=== PATIENT | female | born 1995 | race Caucasian/White ===

== ENCOUNTER → 2019-04-24 16:18 | Outpatient (CLI) | payer BC, SELFPAY ==
[2019-04-28 09:55] LABS: QuantiFERON-TB Gold Plus Negative (Negative)
== END ==
PROVIDERS: Visit Provider Family Medicine
DX: Z23 Encounter for immunization (principal)
CPT/HCPCS: 36415; 86480

== ENCOUNTER 2021-09-23 12:21 | Emergency (ER) | payer OTHER, SELFPAY ==
[2021-09-23 12:25] VITALS: BP 128/71; PULSE 84; RESP 18; TEMP 37.1; O2SAT 98; BMI 45.9
--- NOTE | 2021-09-23 12:38 | HMH.EDUTC ---
[facility] [place] Disposition Clinical Impression: Otitis media Qualifiers: Otitis media type: suppurative Chronicity: acute Laterality: bilateral Recurrence: non-recurrent Spontaneous tympanic membrane rupture: without spontaneous rupture Qualified Code(s): H66.003 - Acute suppurative otitis media without spontaneous rupture of ear drum, bilateral Disposition: Home, Self-Care Condition on Discharge: Good Instructions: Middle Ear Infection Additional Instructions: Drink plenty of fluids. Take tylenol or ibuprofen for pain or fever. Take the medications as directed. Follow up with your regular doctor. GO TO THE ER FOR ANY WORSENING SYMPTOMS Don't start the oral steroids (medrol dose pack) until tomorrow, since you had the shot here today. Prescriptions: RX: Pseudoephedrine HCl 30 mg PO Q6HP PRN #30 tab PRN Reason: Congestion Transmission Status: Pending to [id number] RX: clindamycin HCL [Clindamycin HCl] 300 mg PO TID 10 Days #30 cap Transmission Status: Pending to [id number] methylPREDNISolone [Medrol] 4 mg PO DIRECTED 6 Days #21 packet Transmission Status: Pending to [id number] guaiFENesin [Mucinex 600mg tablet] 1 - 2 tab PO BIDP PRN #30 tab PRN Reason: Congestion Transmission Status: Pending to [id number] Referrals: Dania Caballero APRN [Primary Care Provider] - Time of Disposition: 13:17 Medical Decision Making - Medical Records Medical records reviewed: No: I reviewed the patient's medical records. - Nadir Inquiry Pt receiving controlled substance: No Vital Signs: 09/23/21 12:25 Temperature 98.7 F Temperature Source Oral Pulse Rate [Left Brachial] 84 Respiratory Rate 18 Blood Pressure [Left Arm] 128/71 Blood Pressure Mean [Left Arm] 90 Blood Pressure Source [Left Arm] Automatic Cuff Blood Pressure Position [Left Arm] Sitting 02 Sat by Pulse Oximetry 98 Oxygen Delivery Method Room Air Orders (Tests/Meds): ORDERS Category Date Time Status Covid-19 Nasal PCR ([facility]) Routine Lab 09/23/21 13:11 Ordered [facility] [place] HPI - General Stated complaint: bilateral ear pain Time Seen by Provider: 09/23/21 12:38 Mode of Arrival: Ambulatory Source of Information: Patient Limitations: No Limitations Description of Symptoms (Recalled from Triage Doc. by RN): PATIENT C/O BIALTERAL EAR PAIN AND HEAD CONGESTION SINCE LAST NIGHT HEENT Symptoms (Recalled from RN notes): Yes Resp Symptoms (Recalled from RN notes): No Skin Symptoms (Recalled from RN notes): No MS Symptoms (Recalled from RN notes): No Functional Status (Recalled from RN notes): WNL - History of Present Illness Provider Complaint: She c/o bilateral ear pain for the past 2 days. She has a long history getting ear infections. She denies any fever or chills. Her did have covid-19 about 2 weeks ago. - Related Data Home Medications Medication Instructions Recorded Confirmed levonorgestrel-ethinyl estradiol 1 tab PO DAILY 28 Days #28 tab 07/15/18 09/23/21 0.1 mg-20 mcg tablet Previous Rx's Medication Instructions Recorded Pseudoephedrine HCl 30 mg PO Q6HP PRN #30 tab 09/23/21 clindamycin HCL [Clindamycin HCl] 300 mg PO TID 10 Days #30 cap 09/23/21 guaiFENesin [Mucinex 600mg tablet] 1 - 2 tab PO BIDP PRN #30 tab 09/23/21 methylPREDNISolone [Medrol] 4 mg PO DIRECTED 6 Days #21 09/23/21 packet Allergies Allergy/AdvReac Type Severity Reaction Status Date / Time amoxicillin Allergy Verified 09/23/21 12:38 azithromycin Allergy Verified 09/23/21 12:39 cefaclor [From Ceclor] Allergy Verified 09/23/21 12:38 clarithromycin [From Biaxin] Allergy Verified 09/23/21 12:38 Sulfa (Sulfonamide Allergy Verified 09/23/21 12:38 Antibiotics) tomato Allergy Verified 09/23/21 12:38 - Worker's Comp Is this a Worker's Comp case?: No [facility] History - Hepatitis A Screen Drug use history?: No High risk sexual behaviors?: No History of sexually transmitted infect
[2021-09-23 13:25] VITALS: BP 128/71; PULSE 84; RESP 18; TEMP 37.1; O2SAT 98
== END 2021-09-23 13:45 | disposition home or self-care (01) ==
PROVIDERS: Emergency Provider Nurse Practitioner Family; PCP Nurse Practitioner Family
DX: H66.003 Acute suppurative otitis media without spontaneous rupture of ear drum, bilateral (principal); Z88.2 Allergy status to sulfonamides
CPT/HCPCS: 96372; 99202; C9803; G0463; U0003; U0005

== ENCOUNTER → 2022-05-27 08:52 | Outpatient (CLI) | payer OTHER, SELFPAY ==
[2022-05-27 08:57] LABS: MANUAL DIFFERENTIAL MANUAL DIFFERENTIAL (MANUAL DIFF)
[2022-05-27 10:05] LABS: Urine Pregnancy, HCG Qual. Negative (Negative)
[2022-05-27 10:07] LABS: Basophils # 0.1 K/mm3 (0-0.2); Basophils % 1.2 % (0.1-2.0); Eosinophils # 0.3 K/mm3 (0.0-0.4); Eosinophils % 4.2 % (0.1-12.0); Hematocrit 43.5 % (37.0-47.0); Hemoglobin 14.3 g/dL (12.2-16.2); Lymphocytes # 2.9 K/mm3 (0.7-4.5); Lymphocytes % 35.3 % (10-50); Mean Corpuscular HGB Conc 32.8 g/dL (31.8-35.4); Mean Corpuscular Hemoglobin 28.9 pg (27.0-31.2); Mean Corpuscular Volume 88.1 fl (81-99); Mean Platelet Volume 7.6 fl (7.4-10.4); Monocytes # 0.5 K/mm3 (0.1-1.0); Monocytes % 6.2 % (1.7-9.3); Neutrophils # 4.4 K/mm3 (1.8-7.8); Platelet Count 328 K/mm3 (142-424); Red Blood Count 4.94 M/mm3 (4.20-5.40); White Blood Count 8.2 K/mm3 (4.8-10.8)
[2022-05-27 10:13] LABS: Chloride 98 mmol/L (98-107); Sodium 139 mmol/L (136-145)
[2022-05-27 10:14] LABS: Potassium 4.7 mmoL/L (3.5-5.1)
[2022-05-27 10:16] LABS: Alanine Aminotransferase 43 U/L (12-78); Albumin Level 4.5 g/dl (3.5-5.0); Albumin/Globulin Ratio 1.7 (1.1-1.8); Alkaline Phosphatase 50 U/L (38-126); Anion Gap 13.7 mEq/L (5-15); Aspartate Amino Transferase 37 U/L (14-36); Bilirubin,Total 0.5 mg/dl (0.2-1.3); Blood Urea Nitrogen 17 mg/dl (7-17); Carbon Dioxide 32 mmol/L (22.0-30.0); Estimated Glomerular Filt Rate 120 ml/min (>60); GFR (African American) 145 ML/MIN (>60); Globulin 2.6 g/dL (1.3-3.2); Total Protein,Serum 7.1 g/dl (6.3-8.2)
[2022-05-27 10:17] LABS: Calcium 8.7 mg/dl (8.4-10.2); Glucose 103 mg/dl (74-100)
[2022-05-27 11:57] LABS: Eosinophils % 2 % (0-3); Lymphocytes % 42 % (10-50); Monocytes % 3 % (2-9); Neutrophils % 53 % (42-76); Platelet Estimate Normal; RBC Morphology Normal; Total Cells Counted 100
== END ==
PROVIDERS: PCP Nurse Practitioner Family; Visit Provider Otolaryngology
DX: U07.1 COVID-19 (principal); H65.93 Unspecified nonsuppurative otitis media, bilateral; H69.80 Other specified disorders of Eustachian tube, unspecified ear
CPT/HCPCS: 36415; 80053; 81025; 85007; 85014; 85018; 85048; 85049; C9803; U0003; U0005

== ENCOUNTER → 2022-07-01 09:05 | Outpatient (CLI) | payer OTHER, SELFPAY ==
[2022-07-01 09:23] LABS: Basophils # 0.1 K/mm3 (0-0.2); Basophils % 1.2 % (0.1-2.0); Eosinophils # 0.4 K/mm3 (0.0-0.4); Eosinophils % 4.6 % (0.1-12.0); Hematocrit 42.4 % (37.0-47.0); Hemoglobin 13.8 g/dL (12.2-16.2); Lymphocytes % 35.3 % (10-50); Mean Corpuscular HGB Conc 32.5 g/dL (31.8-35.4); Mean Corpuscular Hemoglobin 28.8 pg (27.0-31.2); Mean Corpuscular Volume 88.4 fl (81-99); Monocytes # 0.5 K/mm3 (0.1-1.0); Monocytes % 5.8 % (1.7-9.3); Neutrophils # 4.5 K/mm3 (1.8-7.8); Platelet Count 325 K/mm3 (142-424); Red Blood Count 4.79 M/mm3 (4.20-5.40); Red Cell Distribution Width 12.9 % (11.5-17.5); White Blood Count 8.4 K/mm3 (4.8-10.8)
[2022-07-01 09:28] LABS: Urine Pregnancy, HCG Qual. Negative (Negative)
== END ==
PROVIDERS: PCP Otolaryngology; Visit Provider Otolaryngology
DX: Z01.812 Encounter for preprocedural laboratory examination (principal); H66.003 Acute suppurative otitis media without spontaneous rupture of ear drum, bilateral; H69.80 Other specified disorders of Eustachian tube, unspecified ear
CPT/HCPCS: 36415; 81025; 85025

== ENCOUNTER 2022-07-03 06:08 | Day surgery (SDC) | payer OTHER, SELFPAY ==
[2022-06-29 13:51] VITALS: BMI 48.6
[2022-07-03] VITALS (10 sets, daily range): BP systolic 135–178; BP diastolic 54–100; PULSE 67–91; RESP 12–18; TEMP 36.2–38; O2SAT 96–99
--- NOTE | 2022-07-03 06:53 | P.PN_ITS ---
[facility] Medical History History of COVID-19 Hypertension Surgical History H/O adenoidectomy History of section History of tonsillectomy Family History Mother Family history of hypothyroidism Mother Family history of diabetes mellitus type II Mother Family history of hypertension Social History Smoking Status: Former smoker alcohol intake: never substance use type: denies use current occupational status: other Travel in the last 8 weeks: Inside the [place] do you feel safe at home: Yes victim of physical abuse: No victim of emotional abuse: No victim of sexual abuse: No would you like helpful sources: No [facility] Anesthesia Checklist Patient Identification Patient Identification: Verbal (Name & ) Structural Data Admitted From: Home Planned Operative Procedure/s: l bmt Consent for Planned Operative Procedure(s) Verified: Yes NPO Status Verified Time NPO: 00:00 Additional verifications Anesthesia Reactions: No Hx Blood Transfusions: No Blood Transfusion Reaction: No Airway Assessment C-Spine Mobility Assessed: Yes TMJ Mobility Assessed: Yes Dentition: Good Dentition Neurological Assessment Level of Consciousness: Awake, Alert and Appropriate Anesthesia Plan Anesthesia Risk discussed: Yes Anesthesia Plan: Verified ASA Class: II Anesthesia Type: General
--- NOTE | 2022-07-03 08:46 | P.PNANES_ITS ---
[facility] Anesthesia Record Part I Anesthesia Record I Intake, IV Amount: 500 Estimated blood loss (mL): 0 Urine output (mL): 0 Blood Pressure: 155/54 SaO2: 96 Pulse Rate: 86 Respiratory Rate: 12 Temperature: 97.3 F Patient is:: Awake and Stable Stable to PACU at:: 08:40
--- NOTE | 2022-07-03 08:46 | EXP.OP.NOTE ---
Date of procedure: 07/03/22 Pre-op Diagnosis:: Eustachian tube dysfunction?left Recurrent otitis media left Post-op Diagnosis:: Same Procedure performed:: Left endoscopic eustachian tuboplasty Left myringotomy with tube placement (william roman) Surgeon:: Jordan Singh III, MD [facility] COORDINATOR:: Leif Barragan Anesthesia: GETA Estimated blood loss (mL): 5 Operative findings:: Her tympanic membrane on the left was severely atelectatic and bulging, the middle ear space was clear of fluid however. The left eustachian tube opening was also edematous and polypoid mucosa was noted. There was also some mucopurulent discharge coming from the opening. Operative note:: The patient was brought to the operating room and placed under general endotracheal anesthesia with an LMA device and IV sedation. The nasal cavity was prepared with topical Afrin initially followed by Afrin and lidocaine soaked cottonoids. I also injected 2% lidocaine with epinephrine into the lateral nasal wall posteriorly. At this juncture, the microscope was used to inspect the left external auditory canal. The canal was cleaned. As noted the tympanic membrane did have areas of atelectasis posteriorly. I elected to make the incision radial incision inferiorly and anteriorly in the tympanic membrane. The middle ear space was evacuated of negative pressure but no fluid was noted. A router bobbin tube was placed in the incision. Antibiotic/steroid drops were then placed in the canal. At this point the cottonoids were removed from both sides the nose and the endoscope was used to inspect the nasal cavity and nasopharynx. The mucosa and turbinates appeared healthy anteriorly. However on the left side the mucosa around the eustachian tube opening was severely edematous and there was some purulent discharge coming from the opening. Using the Metabacus eustachian tube balloon I was able to intubate the eustachian tube and slowly advance the balloon into position. It was inflated and held in position for 2 minutes. Once this was removed, there was some oozing noted topical Afrin and lidocaine was placed on a cottonoid which controlled any bleeding. I then inspected the right side which did not have significant edema as noted on the left. I then reinspected the left side there is no evidence of any further bleeding. Patient was then awakened in the operating room and taken the recovery room in good condition estimated blood loss for both procedures was less than 5 mL. Condition: stable Disposition: PACU Complications:: none
--- NOTE | 2022-07-03 09:00 | SUR.PHASEI ---
Pt left PACU with no C/O pain. Cotton ball in place L ear. Report called to Jessie Matosn RN. VSS.
--- NOTE | 2022-07-03 09:21 | SUR.PHASEI ---
Correction to last note time 0900 should be 0920. pt left pacu at 0920
--- NOTE | 2022-07-04 08:28 | P.PNANES_ITS ---
[facility] Anesthesia Record Part II Anesthesia Record Part II Discharge Time: 09:10 Destination: Outpatient Operating Room Dept PACU nurse assessment reviewed?: Yes Patient Condition:: Good Anesthesia Complications:: None Swallowing reflex intact?: Yes Cyanosis?: No Blood Pressure: 164/98 Pulse Rate: 76 Temperature: 97.5 F Mental Status: Alert & Oriented Pain level:: 0 Nausea and/or vomitting:: None Intake, IV Amount: 600
[2022-07-04 08:30] VITALS: BP 164/98; PULSE 76; TEMP 36.4
== END 2022-07-03 09:51 | disposition home or self-care (01) ==
PROVIDERS: PCP Nurse Practitioner Family; Visit Provider Otolaryngology
PROC: (CPT 69705; principal; 2022-07-03 07:30)
DX: H66.92 Otitis media, unspecified, left ear (principal); H69.92 Unspecified Eustachian tube disorder, left ear; Z79.899 Other long term (current) drug therapy
CPT/HCPCS: 69705; 69436; J2405

== ENCOUNTER 2023-03-04 11:43 | Emergency (ER) | payer OTHER, SELFPAY ==
[2023-03-04 11:43] VITALS: BP 131/79; PULSE 71; RESP 16; TEMP 36.5; O2SAT 97; BMI 34.4
--- NOTE | 2023-03-04 11:55 | EXP.UTC ---
Discharge Plan Disposition Patient Disposition: Home, Self-Care Condition: Good Prescriptions Prescriptions: New gentamicin 0.3 % drops 1 drp ophthalmic (eye) Q4H 7 Days Qty: 5 0RF No Action losartan 50 mg tablet 50 mg PO DAILY ondansetron [ondansetron] 4 mg tablet,disintegrating 4 mg PO Q8H Qty: 10 0RF Referrals Follow up/Referrals: Dania Caballero APRN [Primary Care Provider] - See instructions Activity Restrictions/Add. Instructions Additional Instructions/Restrictions: Use the eye drops as directed. Strict hand washing in the house hold, because conjunctivitis is very contagious. Follow up with your regular doctor. GO TO THE ER FOR ANY WORSENING SYMPTOMS OR CONCERNS Clinical Impressions Clinical Impression: Conjunctivitis of left eye Instructions Patient Instructions: How to Instill Eye Drops, DI for Conjunctivitis Discharge ED Provider: Silverio Ramirez [facility] General Stated complaint: eye drainage Time Seen by Provider: 03/04/23 11:55 History of Present Illness Provider Complaint: She state that since yesterday she has had left eye matting and discharge. She denies any injury or foreign body. Related Data Home Medications Medication Instructions Recorded Confirmed losartan 50 mg tablet 50 mg PO DAILY High blood pressure 03/27/22 07/31/22 Previous Rx's Medication Instructions Recorded ondansetron 4 mg disintegrating 4 mg PO Q8H #10 tabs 07/03/22 tablet gentamicin 0.3 % eye drops 1 drp ophthalmic (eye) Q4H 7 days 03/04/23 #5 mL Allergies Allergy/AdvReac Type Severity Reaction Status Date / Time amoxicillin Allergy Verified 07/31/22 15:33 azithromycin Allergy Verified 07/31/22 15:33 cefaclor [From Ceclor] Allergy Verified 07/31/22 15:33 clarithromycin [From Biaxin] Allergy Verified 07/31/22 15:33 Sulfa (Sulfonamide Allergy Verified 07/31/22 15:33 Antibiotics) tomato Allergy Verified 07/31/22 15:33 [facility] Disclaimer: The information contained in this section may have been updated after the patient was seen, as this information can be updated by other users. Medical History (Updated 03/04/23 @ 12:21 by Silverio Ramirez APRN) History of COVID-19 Hypertension Surgical History (Updated 07/31/22 @ 15:44 by Maricruz Haney APRN) H/O adenoidectomy History of section History of tonsillectomy Status post myringotomy with insertion of tube Family History Mother Family history of hypothyroidism Mother Family history of diabetes mellitus type II Mother Family history of hypertension Social History Smoking Status: Former smoker alcohol intake: never substance use type: denies use current occupational status: other Travel in the last 8 weeks: Inside the [facility] do you feel safe at home: Yes victim of physical abuse: No victim of emotional abuse: No victim of sexual abuse: No would you like helpful sources: No ROS Obtained: Yes All systems reviewed & no additional complaints except as documented Constitutional Constitutional: Denies chills and Denies fever(s) Eyes Eyes: Reports as per HPI and Reports eye discharge ENT Ears, Nose, Mouth, and Throat: Denies dizziness, Denies otalgia and Denies sore throat Cardiovascular Cardiovascular: Denies chest pain Respiratory Respiratory: Denies shortness of breath, Denies chest congestion, Denies cough, Denies stridor and Denies wheezing Gastrointestinal Gastrointestingal: Denies nausea or vomiting Musculoskeletal Musculoskeletal: Reports system reviewed and no additional complaints, except as documented and Denies arthralgias Integumentary/Breasts Skin/Breast: Denies rash Neurologic Neurologic: Denies dizziness and Denies paresthesias Allergic/Immunologic Allergic/Immunologic: Denies wheezing Physical Exam General General appearance: al
[2023-03-04 12:27] VITALS: BP 131/79; PULSE 71; RESP 16; TEMP 36.5; O2SAT 97
== END 2023-03-04 12:28 | disposition home or self-care (01) ==
PROVIDERS: Emergency Provider Nurse Practitioner Family; PCP Nurse Practitioner Family
DX: H10.32 Unspecified acute conjunctivitis, left eye (principal); I10 Essential (primary) hypertension; Z87.891 Personal history of nicotine dependence
CPT/HCPCS: 99212; 99214; G0463

== ENCOUNTER 2023-11-15 11:57 | Emergency (ER) | payer OTHER, SELFPAY ==
[2023-11-15 12:05] VITALS: BP 119/67; PULSE 77; RESP 18; TEMP 36.8; O2SAT 100; BMI 29.6
--- NOTE | 2023-11-15 12:12 | EXP.UTC ---
Discharge Plan Disposition Patient Disposition: Home, Self-Care Condition: Good Prescriptions Prescriptions: New clindamycin HCl 300 mg capsule 300 mg PO Q8H Qty: 30 0RF Referrals Follow up/Referrals: Dania Caballero APRN [Primary Care Provider] - See instructions Activity Restrictions/Add. Instructions Additional Instructions/Restrictions: Drink plenty of fluids. Take tylenol for pain or fever. Take the medications as directed. Follow up with your regular doctor. GO TO THE ER FOR ANY WORSENING SYMPTOMS Clinical Impressions Clinical Impression: Otitis media Instructions Patient Instructions: Middle Ear Infection, Clindamycin Discharge ED Provider: Silverio Ramirez [facility] General Stated complaint: Lt ear pain Time Seen by Provider: 11/15/23 12:12 History of Present Illness Provider Complaint: she states that for the past 3 days she has had ear pain, sinus congestion, and a sore throat. Related Data Previous Rx's Medication Instructions Recorded clindamycin HCl 300 mg capsule 300 mg PO Q8H #30 caps 11/15/23 Allergies Allergy/AdvReac Type Severity Reaction Status Date / Time amoxicillin Allergy Verified 07/16/23 13:24 azithromycin Allergy Verified 07/16/23 13:24 cefaclor [From Ceclor] Allergy Verified 07/16/23 13:24 clarithromycin [From Biaxin] Allergy Verified 07/16/23 13:24 Sulfa (Sulfonamide Allergy Verified 07/16/23 13:24 Antibiotics) tomato Allergy Verified 07/16/23 13:24 [facility] Disclaimer: The information contained in this section may have been updated after the patient was seen, as this information can be updated by other users. Medical History History of COVID-19 Hypertension Surgical History H/O adenoidectomy History of section History of tonsillectomy Status post myringotomy with insertion of tube Family History Mother Family history of hypothyroidism Mother Family history of diabetes mellitus type II Mother Family history of hypertension Social History Smoking Status: Former smoker alcohol intake: never substance use type: denies use current occupational status: other Travel in the last 8 weeks: Inside the [place] do you feel safe at home: Yes victim of physical abuse: No victim of emotional abuse: No victim of sexual abuse: No would you like helpful sources: No ROS Obtained: Yes All systems reviewed & no additional complaints except as documented Constitutional Constitutional: Denies chills, Reports fever(s) and Reports poor appetite Eyes Eyes: Denies eye discharge ENT Ears, Nose, Mouth, and Throat: Denies ear discharge, Reports otalgia, Denies hearing loss, Denies sinus pain and Reports sore throat Cardiovascular Cardiovascular: Denies chest pain and Denies dyspnea Respiratory Respiratory: Denies chest congestion, Reports cough and Denies dyspnea Gastrointestinal Gastrointestingal: Denies abdominal pain, diarrhea, nausea or vomiting Musculoskeletal Musculoskeletal: Denies arthralgias Integumentary/Breasts Skin/Breast: Denies rash Physical Exam General General appearance: alert and in no apparent distress Head Head exam: atraumatic, normocephalic and normal inspection Eye Eye exam: Present normal appearance; Absent PERRL or EOMI ENT ENT exam: Present mucous membranes moist and normal external ear exam Expanded ENT Exam TM/Canal exam: Bilateral TM: erythema, bulging and effusion Nose exam: Absent sinus tenderness Nasal speculum exam: Bilateral: normal Mouth exam: Present normal external inspection and other; Absent drooling Teeth exam: Present normal inspection Throat exam: Present tonsillar erythema and tonsillomegaly Neck Neck exam: Present normal inspection, full ROM and trachea midline; Absent tenderness, meningismus or lymphadenopathy Chest Chest inspection: Present normal inspection and symmetric chest wall rise; Absent tenderness Respiratory Respiratory exam: Present normal lung sounds bilaterally; Absent respiratory distress, wheezes or stridor Cardiovascular Cardiovascular exam: Present regular rate, normal rhythm and normal heart sounds; Absent tachycardia or irregular rhythm Abdominal Exam Abdominal exam: Present soft and normal bowel sounds; Absent distention, tenderness, guarding, rebound or rigidity Extremities Exam Extremities exam: Present normal inspection and normal capillary refill; Absent tenderness, joint swelling or calf tenderness Back Exam Back exam: Present normal inspection and full ROM; Absent tenderness, CVA tenderness (R) or CVA tenderness (L) Neurological Exam Neurological exam: Present alert, oriented X3, CN II-XII intact, normal gait and reflexes normal; Absent motor sensory deficit Psychiatric Psychiatric exam: Present normal affect and normal mood Skin Skin exam: Present warm, dry, intact and normal color Lymphatic Lymphatic Findings: no adenopathy Medical Decision Making Medical Records Medical records reviewed: No I reviewed the patient's medical records. Nadir Inquiry Pt receiving controlled substance: No
[2023-11-15 12:40] VITALS: BP 119/67; PULSE 77; RESP 18; TEMP 36.8; O2SAT 100
== END 2023-11-15 12:58 | disposition home or self-care (01) ==
PROVIDERS: Emergency Provider Nurse Practitioner Family; PCP Nurse Practitioner Family
DX: H66.93 Otitis media, unspecified, bilateral (principal); R09.81 Nasal congestion; R07.0 Pain in throat; Z87.891 Personal history of nicotine dependence
CPT/HCPCS: 99212; 99214; G0463

== ENCOUNTER 2024-03-18 14:16 | Emergency (ER) | payer OTHER, SELFPAY ==
[2024-03-18 14:25] VITALS: BP 118/73; PULSE 109; RESP 19; TEMP 36.9; O2SAT 100; BMI 27.8
--- NOTE | 2024-03-18 15:13 | ED_ITS ---
Discharge Plan Disposition Patient Disposition: Home, Self-Care Condition: Good Prescriptions Prescriptions: New clindamycin HCl 300 mg capsule 300 mg PO Q6H Qty: 40 0RF No Action docusate sodium 100 mg capsule 100 mg PO DAILY metoclopramide HCl 10 mg tablet 10 mg PO DAILY Referrals Follow up/Referrals: Dania Caballero APRN [Primary Care Provider] - See instructions Activity Restrictions/Add. Instructions Additional Instructions/Restrictions: continue to breastfeed or pump, no need to dispose of breastmilk Warm compresses and massage, wearing supportive bra (frequent breast feeding - use pumping to augment milk removal) Take medication as prescribed Use a cold compress (like an ice pack or a bag of frozen vegetables wrapped in a cloth) on your breasts to help decrease your breast fullness and ease your pain. Don?t use the cold compresses for longer than 20 minutes at a time to help prevent frostbite to your skin. Try to pump or feed right after using a cold compress. * Breastfeed on the affected side every 2 hours, or more frequently. This will keep your milk flowing and prevent your breast from getting too full of milk. * Massage the area. Start behind where it is sore and use a circular motion toward the nipple. * Apply warm, moist compresses to the sore area. * Wear a supportive, well-fitting bra. Make sure it isn?t too tight. You don?t want to constrict your milk ducts. * Although it may be painful, it is important to keep when you have mastitis. Your breast milk will not be bad for your baby, even if you have mastitis, although some infants may not like the taste. If you stop , germs can spread in the milk that is left in your breast. This could make your?infection?worse. If you cannot nurse your baby, you should pump your breasts to remove the milk. As with any antibiotic infant may develop diarrhea Over the Counter Ibuprofen for pain and fever Straight to ER if any life threatening symptoms FOllow up with your OBGYN in the next 7-10 days Clinical Impressions Clinical Impression: Mastitis Instructions Patient Instructions: DI for Mastitis, Mastitis Print Language Print Language: Irish Discharge ED Provider: Sushila Cruz [facility] HPI General Stated complaint: left breasy pain Mode of Arrival: Ambulatory Source of Information: Patient Limitations: No Limitations Time Seen by Provider: 03/18/24 15:17 Description of Symptoms (Recalled from Triage Doc. by RN): PATIENT C/O PAIN TO LEFT BREAST, HEADACHE, CHILLS, NAUSEA, AND FEELING LIGHT-HEADED THAT STARTED THIS MORNING HEENT Symptoms (Recalled from RN notes): Yes Resp Symptoms (Recalled from RN notes): No Skin Symptoms (Recalled from RN notes): No MS Symptoms (Recalled from RN notes): No Functional Status (Recalled from RN notes): WNL History of Present Illness Provider Complaint: Patient states she recently had baby and this morning she started with pain, redness and swelling in her left breast and having chills nausea and feeling achy States worried she may have mastitis so she came in to get checked when this evening the breast started feeling warm to the touch and looking red Related Data Home Medications ?Medication ?Instructions ?Recorded ?Confirmed docusate sodium 100 mg capsule 100 mg PO DAILY 03/18/24 03/18/24 metoclopramide HCl 10 mg tablet 10 mg PO DAILY 03/18/24 03/18/24 Previous Rx's ?Medication ?Instructions ?Recorded clindamycin HCl 300 mg capsule 300 mg PO Q6H #40 caps 03/18/24 Allergies Allergy/AdvReac Type Severity Reaction Status Date / Time amoxicillin Allergy Hives Verified 03/18/24 14:44 azithromycin Allergy Hives Verified 03/18/24 14:44 cefaclor [From Ceclor] Allergy Hives Verified 03/18/24 14:44 clarithromycin [From Biaxin] Allergy Hives Verified 03/18/24 14:44 Sulfa (Sulfonamide Allergy Hives Verified 03/18/24 14:44 Antibiotics) tomato Allergy Hives Verified 03/18/24 14:44 Worker's Comp Is this a Worker's Comp case?: No [facility] Disclaimer: The information contained in this section may have been updated after the patient was seen, as this information can be updated by other users. Medical History History of COVID-19 Hypertension Surgical History H/O adenoidectomy History of section History of tonsillectomy Status post myringotomy with insertion of tube Family History Mother Family history of hypothyroidism Mother Family history of diabetes mellitus type II Mother Family history of hypertension Social History Smoking Status: Former smoker alcohol intake: never substance use type: denies use current occupational status: other Travel in the last 8 weeks: Inside the [place] do you feel safe at home: Yes victim of physical abuse: No victim of emotional abuse: No victim of sexual abuse: No would you like helpful sources: No ROS Obtained: Yes All systems reviewed & no additional complaints except as documented and Yes Systems reviewed as appropriate & no additional complaints except as documented Constitutional Constitutional: Reports system reviewed and no additional complaints, except as documented, Reports as per HPI, Reports body ache, Reports chills and Denies fever(s) ENT Ears, Nose, Mouth, and Throat: Reports system reviewed and no additional complaints, except as documented and Reports as per HPI Cardiovascular Cardiovascular: Reports system reviewed and no additional complaints, except as documented and Reports as per HPI Gastrointestinal Gastrointestingal: Reports system reviewed and no additional complaints, except as documented and as per HPI Genitourinary Female Genitourinary: Reports system reviewed and no additional complaints, except as documented and Reports as per HPI Musculoskeletal Musculoskeletal: Reports system reviewed and no additional complaints, except as documented and Reports as per HPI Integumentary/Breasts Skin/Breast: Reports system reviewed and no additional complaints, except as documented, Reports as per HPI and Reports other (redness, pain and tenderness in left breast) Physical Exam General General appearance: alert and in no apparent distress ENT ENT exam: Present mucous membranes moist Chest Chest inspection: Present tenderness Expanded Chest Exam Female Torso: 2 1. redness, tenderness and warmth noted, appears like mastitis Respiratory Respiratory exam: Present normal lung sounds bilaterally; Absent respiratory distress or wheezes Cardiovascular Cardiovascular exam: Present regular rate, normal rhythm and normal heart sounds Neurological Exam Neurological exam: Present alert, oriented X3 and normal gait Medical Decision Making Nadir Inquiry Pt receiving controlled substance: No Nadir was queried for this patient: No Vital Signs: 03/18/24 14:25 Temperature 98.5 F Temperature Source Oral Pulse Rate [Left Brachial] 109 H Respiratory Rate 19 Blood Pressure [Left Arm] 118/73 Blood Pressure Mean [Left Arm] 88 Blood Pressure Source [Left Arm] Automatic Cuff Blood Pressure Position [Left Arm] Sitting 02 Sat by Pulse Oximetry 100 Oxygen Delivery Method Room Air Medical Decision Narrative: Medications and treatment discussed with OBGYN neon sign erector
[2024-03-18 15:34] VITALS: BP 118/73; PULSE 109; RESP 19; TEMP 36.9; O2SAT 100
== END 2024-03-18 15:39 | disposition home or self-care (01) ==
PROVIDERS: Emergency Provider Nurse Practitioner; PCP Nurse Practitioner Family
DX: N61.0 Mastitis without abscess (principal); R11.0 Nausea; R68.83 Chills (without fever)
CPT/HCPCS: 99212; 99214; G0463

== ENCOUNTER 2025-03-06 17:19 | Outpatient (CLI) | payer OTHER, SELFPAY ==
--- OUTSIDE RECORDS SUMMARY | 2025-02-02 06:30 | XMS_ITS ---
Author Organization [facility] Address [address] [place] [address] Care Team Providers Care Bobj Developer Name Role Phone Zoey Hilario Unavailable [phone] Allergies Allergen (clinical drug ingredient) Drug/Non Drug Allergy documented on EMR Reaction Allergy Type Onset Date Status cefaclor ceclor (uncoded) Unknown Allergy Act makenna amoxicillin Amoxicillin Unknown Drug Allergy Act makenna Biaxin Unknown Drug Allergy Active azithromycin Zithromax Unknown Drug Allergy Acti ve Substance with sulfonamide structure and antibacterial mechanism of action (substance) Sulfa Antibiotics Unknown Drug Allergy Active REASON FOR VISIT 24 weeks gtt 11:56 Medications Medication SIG (Take, Route, Fr equency, Duration) Notes Start Date End Date Status 27-1 MG Tablet 1 tablet Orally Once a day Active Social History Tobacco Use: Social History Observation Description Date Details (start date - stop date) Current Smoker NA - NA Sex Assigned At : Social History Observation Description Sex Assigned At Female Social History Drugs/Alcohol: Social Info Question Answer Notes Drugs Have you used drugs other than those for medical reasons in the past 12 months? No Steroid Use Have you used anabolic (body building) st eroids? No Alcohol Screen Did you have a drink containing alcohol in the past year? No Points 0 Interpretation Negative Tobacco Use: Social Info Question Answer Notes Tobacco Use/Smoking Are you a current smoker How often do you smoke cigarettes? every day How many cigarettes a day do you smoke? 6-10 Additional Details Category Social Info Options Details Miscellaneous: Domestic violence: No Problems Problem Type SNOMED Code ICD Code Onset Dates Problem Status W/U Status Risk Notes Problem History of section (038045584) Previous section (Z98.891) Active confirmed Vital Signs Weight 176.8 lbs 02/02/2025 BMI 30.348 kg/m2 02/02/2025 Encounters Encounter Location Date Provider Diagnosis [facility] [address] [facility] [address] [place] [address] 02/02/2025 Zoey Hilario History of bariatric surgery Z98.84 ; Supervision of other high risk pregnancies, second trimester O09.892 ; History of delivery, currently O34.219 ; 24 weeks gestation of Z3A.24 and Previous section Z98.891 Assessments Encounter Date Diagnosis (ICD Code) Assessment Notes Treatment Notes Treatment Clinical Notes Section Notes 02/02/2025 History of bariatric surgery (ICD-10 - Z98.84) 02/02/2025 Supervision of other high risk pregnancies, second trimester (ICD-10 - O09.892) 02/02/2025 History of delivery, currently (ICD-10 - O34.219) 02/02/2025 24 weeks gestation of (ICD-10 - Z3A.24) 02/02/2025 Previous section (ICD-10 - Z98.891) Plan Of Treatment Medication Medication Name Sig Start Date Stop Date Notes 27-1 MG Tablet 1 tablet Orally Once a day Next Appt Details Follow Up: 4 Weeks, Reason: Provider Name:Zoey Hilario, 03/17/2025 10:30:00 AM, [place], [address], Provider Name:Zoey Hilario, 03/31/2025 10:30:00 AM, [place], [address], Provider Name:Zoey Hilario, 04/14/2025 10:30:00 AM, [place], [address], Provider Name:Zoey Hilario, 04/28/2025 10:30:00 AM, [place], [address], Provider Name:Zoey Rodriguezsusu, 05/05/2025 10:45:00 AM, [address], [place], [address], Provider Name:Zoey Houstonjasmin, 05/12/2025 10:45:00 AM, [address], [place], [address], Provider Name:Mary Alec, 05/18/2025 12:00:00 PM, [address] [facility] [place] [place], [address], Provider Name:Zoey Sulaiman, 06/01/2025 11:15:00 AM, [address] [facility] [address] [place] [address], [address], Provider Name:Zoey Sulaiman, 07/01/2025 11:30:00 AM, [address] [facility] [address], [address], Progress Notes * Junie QUIROGAOB:1995 (29 yo F)Acc No.[id number]:02/02/2025 Progress Note Patient: Argenis Parker Provider: Yuliet Hilario MD :1995 A ge:29 Y S ex:Female Date:02/02/2025 [facility] Subjective: * Chief Complaints: * 2 4 weeks gtt 11:56 * Medical History: Hypertension Medical History Verified * Computer Software Engineer History: M enstrual History: A ssociated signs and symptoms of period: N o S exual Activity/Contraception: C urrently sexually active Y es E johan sexually active Y es N umber of partners (lifetime) N o A ge of first sexual activity 1 5 L ast Preventive Screening Labs: N /A. U rinary Incontinence: D o you ever leak urine when you cough, sneeze, laugh or exercise Y es D o you ever leak urine on the way to the bathroom or can't get to the bathroom on time N o D o you go to the bathroom frequently more than 7 times during the day and/or get up more than 2 times at night N o, No L ast Mammogram Date (Historical) N /A. L ast Colon Cancer Screening Date: (Historical) N /A. L ast DEXA Scan: (Historical) N /A. B irth control (Historical) N othing. L ast HPV (Historical) L ast HPV N /A A bnormal pap smear (Historical) N o. S exually Transmitted Infections (STIs) N one. L ast Pap Smear/HPV Date (Historical) 0 03/08/22 Normal, HPV Negative. * OB History: P regnancy History (GPA) Total Pregnancies 2 Full Term 2 Premature 0 Ectopics 0 Living 2 P regnancy # 1: [id number] weeksC-sectionSpinal BlockN/AYes I gained weight, can't remember how muchI had an emergency due to high blood pressure at my 37 week appointment.. P regnancy # 2: csection 6.0lbs female. * Surgical History: tonsillectomy 2019 Bariatric Surgery 10/23/22 Surgical History verified. * Hospitalization/Major Diagno stic Procedure: Bariatric Surgery 11/09 Hospitalization Verified. * Family History: M other: diagnosed with Diabetes mellitus without mention of complication, type II or unspecified type, not stated as uncontrolled. F amily History Verified.. Family History: Family history known Auto Immune Disorders: Mother Diabetes: Mother Hypertension: Mother, Father Stroke: Maternal Grandmother, Paternal Grandfather Thyroid Disorder: Mother. * Social History: T obacco Use: T obacco Use/Smoking A re you a c urrent smoker H ow often do you smoke cigarettes? e very day H ow many cigarettes a day do you smoke? 6 -10 D rugs/Alcohol: D rugs H ave you used drugs other than those for medical reasons in the past 12 months? N o Alcohol Screen D id you have a drink containing alcohol in the past year? N o P oints 0 I nterpretation N egative Steroid Use H ave you used anabolic (body building) steroids? N o M iscellaneous: D omestic violence: No. S ocial History Verified. * Medications: T akingPrenatal( Vit-Fe Fumarate-FA) 27-1 MG Tablet 1 tablet Orally Once a day Medication List reviewed and reconciled with the patientTaking ( Vit-Fe Fumarate-FA) 27-1 MG Tablet 1 tablet Orally Once a day Medication List reviewed and reconciled with the patient * Allergies: S ulfa AntibioticsAmoxicillinBiaxinceclorZithromaxyesAllergies Verified. Objective: * Vitals: W t: 176.8 lbs, BMI: 30.348 Index. Assessment: * Assessment: 1. S upervision of other high risk pregnancies, second trimester - O09.892 (Primary) 2 . H istory of bariatric surgery - Z98.84 3 . H istory of delivery, currently - O34.219 4 . 2 4 weeks gestation of - Z3A.24 5 . P revious section - Z98.891 Plan: * Treatment: * Procedure Codes: 0 502F HEDIS SUBSEQUENT CARE * Follow Up: 4 Weeks Billing Information: * Visit Code: 43720 Office/Outpatient visit, est patient. mirtha Return OB Visit. * Procedure Codes: 0502F HEDIS SUBSEQUENT CARE. * Sign off status: Completed Visit Status: C HK (Check Out) true * Provider: Yuliet Hilario MD Date: 0 02/02/2025 Generated for Mandy hernandez/Laurel/Pinaitting on: 0 03/09/2025 10:04 AM EDT
--- OUTSIDE RECORDS SUMMARY | 2025-02-02 11:35 | XMS_ITS | Encounter Summary ---
[facility] Organization [facility] Address [address] [place] [address] Care Team Providers Care Backend Python Developer Name Role Phone Dania Caballero APRN Primary Care Provider + [phone] Encounter Details Date Type Department Care Team (Late st Contact Info) Description 02/02/2025 11:35 AM EDT Lab [facility] [address] [place] [phone] History of maternal syphilis, currently , second trimester Social History Tobacco Use Types Packs/Day Years Used Date Smoking Tobacco: Never Passive Smoke Exposure: Never Smokeless Tobacco: Never Alcohol Use Standard Drinks/Week Comments Never 0 (1 standard drink = 0.6 oz pur e alcohol) [facility] Utilities Answer Date Recorded In the past 12 months has e electric, gas, oil, or water company threatened to shut off services in your home? No 02/18/2024 AUDIT-C Answer Date Recorded Q1: How often do you have a drink containing alcohol? Never 02/18/2024 Q2: How many drinks containi ng alcohol do you have on a typical day when you are drinking? Patient does not drink Q3: How often do you have si x or more drinks on one occasion? Never 02/18/2024 Overall Financial Resource Strain (CARDIA) Answe r Date Recorded How hard is it for you to pa y for the very basics like food, housing, medical care, and heating? Not hard at all 02/18/2024 [facility] of Occupat ional Health - Occupational Stress Questionnaire Answer Date Recorded Do you feel stress - tense, restless, nervous, or anxious, or unable to sleep at night because your mind is troubled all the time - these days? Not at all 02/18/2024 Exercise Vital Sign Answer Date Recorde d On average, how many days pe r week do you engage in moderate to strenuous exercise (like a brisk walk)? 0 days 02/18/2024 On average, how many minutes do you engage in exercise at this level? 0 min 02/18/2024 Hunger Vital Sign Answer Date Recorded Within the past 12 months, y ou worried that your food would run out before you got the money to buy more. Never true 02/18/20 24 Within the past 12 months, t he food you bought just didn't last and you didn't have money to get more. Never true 02/18/2024 PRAPARE - Transportation Answer Date Re corded In the past 12 months, has l ack of transportation kept you from medical appointments or from getting medications? No 08/2023 In the past 12 months, has l ack of transportation kept you from meetings, work, or from getting things needed for daily living? No 02/18/2024 [place] Depression Scale Answer Date Recorded Retired [place] Depression Score 0 02/19/2024 Retired EPD Scale: Thought of Harming Self Unrec ognized value 02/19/2024 Abuse Screen Answer Date Recorded Feels Unsafe at Home or Work/School no 02/18/2024 Feels Threatened by Someone no 08/2023 Does Anyone Try to Keep You From Having Contact with Others or Doing Things Outside Your Home? no 02/18/2024 Physical Signs of Abuse Present no 02/18/2024 Housing Stability Answer Date Recorded Current Living Arrangements home 08/2023 Potentially Unsafe Housing Conditions none 02/18/2024 Family and Community Support Answer Aidan e Recorded If for any reason you need h elp with day-to-day activities such as bathing, preparing meals, shopping, managing finances, etc., do you get the help you need? I don't need any help 02/18/2024 How often do you feel lonely or isolated from those around you? Never 02/18/2024 Employment Answer Date Recorded Do you want help finding or keeping work or a job? I do not need or want help 02/18/2024 Disabilities Answer Date Recorded Difficulty Concentrating, Remembering or Making Decisions no 02/18/2024 Difficulty Managing Errands Independently no 02/18/2024 Education Answer Date Recorded Do you want help with school or training? For example, starting or completing job training or getting a high school diploma, GED or equivalent No 02/18/2024 Preferred Language Fijian 02/18/2024 PHQ-2 Answer Date Recorded Retired PHQ-9: Brief Depression Severity Measure Score 0 02/18/2024 Comments No Sex and Gender Information Value Date Recorded Sex Assigned at Not on file Legal Sex Female 3:19 PM EST Gender Identity Not on file Sexual Orientation Not on file documented as of this encounter Plan of Treatment Upcoming Encounters Date Type Department Care Team (Late st Contact Info) Description 05/15/2025 3:30 PM EDT Pre-Admission Testing [facility] [address] [place] [address] 05/18/2025 12:00 PM EDT Hospital Encounter [facility] [address] [place] [address] Mary Michael MD [address] [address] 05/18/2025 12:00 PM EDT - 05/18/2025 1:00 PM EDT Surgery [facility] [address] [place] [address] Mary Michael MD [facility] [address] [address] SECTION REPEAT Scheduled Procedures Name Priority Associated Diagnoses Date/Ti me SECTION REPEAT 04/21 12:00 PM EDT documented as of this encounter Procedures Procedure Name Priority Date/Time Associated Diagnosis Comments TREPONEMA PALLIDUM AB W/REFLEX RPR Routine 02/02/2025 11:58 AM EDT History of maternal syphilis, currently , second trimester GLUCOSE, POST 50 GM GLUCOLA Routine 02/02/2025 11:58 AM EDT History of maternal syphilis, currently , second trimester CBC (NO DIFF) Routine 02/02/2025 11:58 AM EDT History of maternal syphilis, currently , second trimester documented in this encounter Results * Treponema pallidum AB w/Reflex RPR (02/02/2025 11:58 AM EDT) [facility] Treponemal AB Total Non-Reacti ve Non-React makenna 02/02/2025 2:52 PM EDT [facility] Blood Venipuncture / Unknown 02/02/2025 11:58 AM EDT 02/02/2025 12:15 PM EDT Narrative [facility] - 02/02/2025 2:52 PM EDT Reactive results will reflex RPR testing. Zoey Hilario MD LAB BLOOD ORDERABLES Final Re sult [facility]
[address] [place] [address], * (ABNORMAL) CBC (No Diff) (02/02/2025 11:58 AM EDT) [facility] WBC 6.55 3.40 - 10.80 10*3/mm3 02/02/2025 2:33 PM EDT [facility] RBC 3.85 3.77 - 5.28 10*6/mm3 02/02/2025 2:33 PM EDT [facility] Hemoglobin 11.7(L) 12.0 - 15.9 g/dL 02/02/2025 2:33 PM EDT [facility] Hematocrit 35.0 34.0 - 46.6 % 02/02/2025 2:33 PM EDT [facility] MCV 90.9 79.0 - 97.0 fL 02/02/2025 2:33 PM EDT [facility] MCH 30.4 26.6 - 33.0 pg 02/02/2025 2:33 PM EDT [facility] MCHC 33.4 31.5 - 35.7 g/dL 02/02/2025 2:33 PM EDT [facility] RDW 11.7(L) 12.3 - 15.4 % 02/02/2025 2:33 PM EDT [facility] RDW-SD 38.8 37.0 - 54.0 fl 02/02/2025 2:33 PM EDT [facility] MPV 10.1 6.0 - 12.0 fL 02/02/2025 2:33 PM EDT [facility] Platelets 232 140 - 450 10*3/mm3 02/02/2025 2:33 PM EDT [facility] Blood Venipuncture / Unknown 02/02/2025 11:58 AM EDT 02/02/2025 12:06 PM EDT us Zoey Hilario MD LAB BLOOD ORDERABLES Final Re sult [facility]
[address] [place] [address], [place] [phone] * Glucose, Post 50 Gm Glucola (02/02/2025 11:58 AM EDT) Gestational GCT 133 65 - 139 mg/dL 02/02/2025 4:15 PM EDT [facility] Blood Venipuncture / Unknown 02/02/2025 11:58 AM EDT 02/02/2025 1:12 PM EDT us Zoey Hilario MD LAB BLOOD ORDERABLES Final Re sult [facility]
[address] [place] [address], [place] [phone] documented in this encounter Visit Diagnoses Diagnosis History of maternal syphilis, currently , second trimester documented in this encounter Care Teams Backend Python Developer Relationship Specialty Start Date End Date Dania Caballero APRN [address] [place] [address] PCP - General Internal Medicine 08/28/23 documented as of this encounter
--- OUTSIDE RECORDS SUMMARY | 2025-03-02 06:30 | XMS_ITS ---
Author Organization [facility] Address [address] [place] [address] Care Team Providers Care Rotary Drum Tanner Name Role Phone Zoey Hilario Unavailable [phone] Allergies Allergen (clinical drug ingredient) Drug/Non Drug Allergy documented on EMR Reaction Allergy Type Onset Date Status cefaclor ceclor (uncoded) Unknown Allergy Act makenna amoxicillin Amoxicillin Unknown Drug Allergy Act makenna Biaxin Unknown Drug Allergy Active azithromycin Zithromax Unknown Drug Allergy Acti ve Substance with sulfonamide structure and antibacterial mechanism of action (substance) Sulfa Antibiotics Unknown Drug Allergy Active REASON FOR VISIT 28 weeks Medications Medication SIG (Take, Route, Fr equency, [...] Problem Status W/U Status Risk Notes Problem Supervision of high risk (712127339) Supervision of other high risk pregnancies, third trimester (O09.893) Active confirmed Vital Signs Weight 181.0 lbs 03/02/2025 BMI 31.069 kg/m2 03/02/2025 Encounters Encounter Location Date Provider Diagnosis [facility] [address] [place] [address] 03/02/2025 Zoey Hilario History of bariatric surgery Z98.84 ; Supervision of other high risk pregnancies, third trimester O09.893 ; History of delivery, currently O34.219 ; Previous section Z98.891 and 28 weeks gestation of Z3A.28 Assessments Encounter Date Diagnosis (ICD Code) Assessment Notes Treatment Notes Treatment Clinical Notes Section Notes 03/02/2025 History of bariatric surgery (ICD-10 - Z98.84) 03/02/2025 Supervision of other high risk pregnancies, third trimester (ICD-10 - O09.893) 03/02/2025 History of delivery, currently (ICD-10 - O34.219) 03/02/2025 Previous section (ICD-10 - Z98.891) 03/02/2025 28 weeks gestation of (ICD-10 - Z3A.28) Plan Of Treatment Medication Medication Name Sig Start Date Stop Date Notes 27-1 MG Tablet 1 tablet Orally Once a day Next Appt Details Follow Up: 2 Weeks, Reason: Provider Name:Zoey Hilario, 03/17/2025 10:30:00 AM, [address], [place], [address], Provider Name:Zoey Hilario, 03/31/2025 10:30:00 AM, [address], [address], Provider Name:Zoey Hilario, 04/14/2025 10:30:00 AM, [address], [place], [address], Provider Name:Zoey Hilario, 04/28/2025 10:30:00 AM, [place], [address], Provider Name:Zoye Sulaiman, 05/05/2025 10:45:00 AM, [address], [place], [address], Provider Name:Zoey Rodriguezsusu, 05/12/2025 10:45:00 AM, [address], [place], [address], Provider Name:Mary Michael, 05/18/2025 12:00:00 PM, [address] [facility], [place], [address], Provider Name:Zoey Sulaiman, 06/01/2025 11:15:00 AM, [address] [facility] [address] [place] [address], [phone], Provider Name:Zoeyjoey Hilario, 07/01/2025 11:30:00 AM, [address] [facility] [address] [place] [address], [phone], Progress Notes * Junie QUIROGAOB:1995 (29 yo F)Acc No.[id number]:03/02/2025 Progress Note Patient: Argenis Parker Provider: Yuliet Hilario MD :1995 A ge:29 Y S ex:Female Date:03/02/2025 [id number] Subjective: * Chief Complaints: * 2 8 weeks * Medical History: Hypertension : yes Medical History Verified * Android Ui Developer History: M enstrual History: A ssociated signs [...] 0 Living 2 P regnancy # 1: [id number] weeksC-sectionSpinal BlockN/AYes I gained weight, can't remember [...] AntibioticsAmoxicillinBiaxinceclorZithromaxyesAllergies Verified. Objective: * Vitals: W t: 181.0 lbs, BMI: 31.069 Index. * P ast Orders: L ab:GLUCOSE, POST 50 GM GLUCOLA (Order Date - 02/02/2025) (Collection Date & Time - 02/02/2025 01:58 PM) Result: 133 passed Value Reference Range GESTATIONAL GCT 133 65-139 - mg/dL L ab:CBC (NO DIFF) (Order Date - 02/02/2025) (Collection Date & Time - 02/02/2025 01:58 PM) Result: Normal Value Reference Range WBC, CORRECTED 6.55 3.40-10.80 - 10*3/mm 3 ERYTHROCYTES IN BLOOD BY AUTOMATED COUNT 3.85 3.77-5.28 - 10*6/mm3 HEMOGLOBIN (MG/DL) IN BLOOD 11.7 L 12.0-15.9 - g/dL HEMATOCRIT (%) BY AUTOMATED COUNT 35.0 34.0-4 6.6 - % RBC MCV (FL) BY AUTOMATED COUNT 90.9 79.0-97. 0 - fL RBC MCH (PG) BY AUTOMATED COUNT 30.4 26.6-33. 0 - pg RBC MCHC (G/DL) BY AUTOMATED COUNT 33.4 31.5- 35.7 - g/dL RBC RDW (%) BY AUTOMATED COUNT 11.7 L 12.3-15.4 - % RDW-SD 38.8 37.0-54.0 - fl MEAN PLATELET VOLUME (FL) BY AUTOMATED COUNT 10.1 6.0-12.0 - fL PLATELETS BY AUTOMATED COUNT 232 140-450 - 1 0*3/mm3 Assessment: * Assessment: 1. S upervision of other high risk pregnancies, third trimester - O09.893 (Primary) ?2. H istory of bariatric surgery - Z98.84 3 . H istory of delivery, currently - O34.219 4 . P revious section - Z98.891 5. 2 8 weeks gestation of - Z3A.28 Plan: * Treatment: * Procedure Codes: 0 502F HEDIS SUBSEQUENT CARE * Follow Up: 2 Weeks Billing Information: * Visit Code: 22264 Office/Outpatient visit, est patient. mirtha Return OB Visit. * Procedure Codes: 0502F HEDIS SUBSEQUENT CARE. * Sign off status: Completed Visit Status: C HK (Check Out) true * Provider: Yuliet Hilario MD Date: 03/02/2025 Generated for Mandy hernandez/Laurel/Pinaitting on: 03/09/2025 10:04 AM EDT
--- OUTSIDE RECORDS SUMMARY | 2025-03-09 10:04 | XMS_ITS | Encounter Summary ---
Author Organization [facility] Address [address] [place] [address] Care Team Providers Care Prototype Technician Name Role Phone Dania Caballero APRN Primary Care Provider + [phone] Encounter Details Date Type Department Care Team (Latest Contact Info) Description 02/02/2025 Travel Social History Tobacco Use Types Packs/Day Years Used Date Smoking Tobacco: Never Passive Smoke Exposure: Never Smokeless Tobacco: Never Alcohol Use Standard Drinks/Week Comments Never 0 (1 standard drink = 0.6 oz pur e alcohol) [facility] Utilities Answer Date Recorded In the past 12 months has [employer] electric, gas, oil, or water company threatened [...] and heating? Not hard at all 02/18/2024 [employer] [place] [employer] - Occupational Stress [...] things needed for daily living? No 02/18/2024 [place] Depression Scale Answer Date Recorded Retired [place] Depression Score 0 02/19/2024 Retired EPD Scale: [...] GED or equivalent No 02/18/2024 Preferred Language Yi 02/18/2024 PHQ-2 Answer Date Recorded Retired PHQ-9: [...] Description 05/15/2025 3:30 PM EDT Pre-Admission [facility] [address] [facility] [place] [address] 05/18/2025 12:00 PM EDT Hospital Encounter [facility] [address] [facility] [place] [address] Mary Michael MD [facility] [place] [id number] 05/18/2025 12:00 PM EDT - 05/18/2025 1:00 PM EDT Surgery [facility] [address] [place] [address] Mary Michael MD [address] [place] [id number] SECTION REPEAT Scheduled Procedures Name Priority Associated Diagnoses Date/Ti me SECTION REPEAT 04/21 12:00 PM EDT documented as of this encounter Visit Diagnoses Not on filedocumented in this encounter Care Teams Prototype Technician Relationship Specialty Start Date End Date Dania Caballero APRN [address] [address] PCP - General Internal Medicine 08/28/23 documented as of this encounter
--- OUTSIDE RECORDS SUMMARY | 2025-03-09 10:05 | XMS_ITS | Patient Health Record ---
Author Organization [facility] Address [address] [facility] [address] [place] [address] Care Team Providers Care Handle Bar Assembler Name Role Phone Zoey Hilario Unavailable [phone] Mary Michael Unavailable [phone] Allergies Allergen (clinical drug ingredient) Drug/Non Drug Allergy documented on EMR Reaction Allergy Type Onset Date Status cefaclor ceclor (uncoded) Unknown Allergy Act makenna amoxicillin Amoxicillin Unknown Drug Allergy Act makenna Biaxin Unknown Drug Allergy Active azithromycin Zithromax Unknown Drug Allergy Acti ve Substance with sulfonamide structure and antibacterial mechanism of action (substance) Sulfa Antibiotics Unknown Drug Allergy Active Results Component Value Reference Range Flag Notes *US OB Detailed Anatomy Reviewed date:01/07/2025 01:08:41 PM Interpretation: Performing Lab: Notes/Report: [facility] Transabdominal Obstetric Study Report Name: GIRMA QUIROGA Accession/Encounter No:[id number] Procedure/Order ID: [id number] : 1995 Age: 29 Gender: F Race: White Study Date: January 06, 2025 Study Time: 03:03 PM Reading Group: Zoey Hilario MD Referring Group: Zoey Hilario MD Ordering Phys: Zoey Hilario MD Performing User: Iesha Rainey RDMS Equipment: Affiniti 30 Study Quality: Good Indications: anatomy scan Low risk NIPT A growth ultrasound was performed. Disclaimer: Ultrasound cannot detect all structural defects or underlying genetic abnormalities. Additionally, some abnormalities develop over time and/or are not detectable until after . General Information Trimester: 2nd/3rd trimester Gestations: 1 : Intrauterine Gestational Age (Best) Best: 20w 4d Determined by: LMP MONISHA: 2025-05-22 Gestational Age (Prev Study) Previous US: 20w 4d Previous Study: Oct 2024 by LMP MONISHA: 2025-05-22 Gestational Age (LMP) LMP: 20w 4d First Day of LMP: 2024-08-15 MONISHA: 2025-05-22 Gestational Age (Current US) Current US: 20w 0d MONISHA: 2025-05-26 General Evaluation gender: M cardiac activity: Present Presentation/Position: Cephalic Placental cord insert: Centrally located Placental location: Fundal-posterior Biometry (Fetus A) EFW: 321.7g 11 oz 33% BLAKE-76 BPD: 4.67 cm 20w 1d 30% HADLOCK-84 HC: 17.12 cm19w 5d 10% HADLOCK-84 AC: 14.78 cm20w 0d 27% HADLOCK-84 FL: 3.16 cm 19w 6d 18% HADLOCK-84 FL/HC: 0.18 HC/AC: 1.16 FL/BPD: 0.68 FL/AC: 0.21 Cisterna magna: 6.6 mm Lateral vents: 6.5 mm TCD: 1.97 cm 20w 1d 11% Nuchal fold: 3.26 mm Anatomy (Fetus A) Midline falx: Normal Cisterna magna: Normal Choroid plexus: Normal Lateral ventricles: Normal Cerebellum: Normal CSP: Normal Orbits: Normal Face: Normal Profile: Normal Nasal bone: Normal Nose/Lips: Normal Right upper extr: Normal Right lower extr: Normal Left upper extr: Normal Left lower extr: Normal 4-chamber heart: Normal LVOT: Normal RVOT: Normal Cardiac rhythm: Normal 3VTV: Normal 3VV: Normal Spine: Normal Stomach: Normal Diaphragm: Normal Bowel: Normal Right kidney: Normal Left kidney: Normal Bladder: Normal Abdom. cord insert: Normal Cord vessels: 3 vessel cord Findings: Maternal Anatomy: Cervix is 3.16 cm long. Conclusions: Mcclure IUP noted with cardiac activity. No anomalies noted at this time. growth is consistent with dating. Fluid appears normal Approved By: Zoey Hilario MD Approved at: January 07, 2025 01:02 PM EDT Electronically Signed on Studycast GIRAM QUIROGA 2025-01-06 Page 1 of 1 Imaging Center - , [facility] Urine Reviewed date:09/29/2024 02:54:42 PM Interpretation:Positive Performing Lab: Notes/Report: CBC (NO DIFF) Reviewed date:11/12/2024 09:46:38 AM Interpretation:Normal Performing Lab: Notes/Report: WBC, CORRECTED 9.55 3.40-10.80 10*3/mm3 ERYTHROCYTES IN BLOOD BY AUTOMATED COUNT 4.50 3.77-5.28 10*6/mm3 HEMOGLOBIN (G/DL) IN BLOOD 13.0 12.0-15.9 g/dL HEMATOCRIT (%) BY AUTOMATED COUNT 40.1 34.0-46.6 % RBC MCV (FL) BY AUTOMATED COUNT 89.1 79.0-97.0 fL RBC MCH (PG) BY AUTOMATED COUNT 28.9 26.6-33.0 pg RBC MCHC (G/DL) BY AUTOMATED COUNT 32.4 31.5-35.7 g/dL RBC RDW (%) BY AUTOMATED COUNT 12.4 12.3-15.4 % RDW-SD 40.3 37.0-54.0 fl MEAN PLATELET VOLUME (FL) BY AUTOMATED COUNT 10.3 6.0-12.0 fL PLATELETS BY AUTOMATED COUNT 351 140-450 10*3/mm3 Lab specimens received at a [facility].?See result details for the performing location information. URINE DRUG SCREEN Reviewed date:11/12/2024 09:46:57 AM Interpretation:Negative Performing Lab: Notes/Report: Cutoff For Drugs Screened: Amphetamines 500 ng/ml Barbiturates 200 ng/ml Benzodiazepines 150 ng/ml Cocaine 150 ng/ml Methadone 200 ng/ml Opiates 100 ng/ml Phencyclidine 25 ng/ml THC 50 ng/ml Methamphetamine 500 ng/ml Tricyclic Antidepressants 300 ng/ml Oxycodone 100 ng/ml Buprenorphine 10 ng/ml The normal value for all drugs tested is negative. This report includes unconfirmed screening results, with the cutoff values listed, to be used for medical treatment purposes only. Unconfirmed results must not be used for non-medical purposes such as employment or legal testing. Clinical consideration should be applied to any drug of abuse test, particularly when unconfirmed results are used. THC URINE Negative Negative PHENCYCLIDINE SCREEN URINE Negative Negative COCAINE, URINE Negative Negative METHAMPHETAMINE Negative Negative OPIATES URINE Negative Negative AMPHETAMINE SCREEN URINE Negative Negative BENZODIAZEPINE SCREEN, URINE Negative Negative TRICYCLIC ANTIDEPRESSANTS SCREEN URINE Negative Negative METHADONE SCREEN, URINE Negative Negative BARBITURATE SCREEN, URINE Negative Negative OXYCODONE SCREEN URINE Negative Negative BUPRENORPHINE Negative Negative Lab specime ns received at a [facility].?See result details for the performing location information. URINE CULTURE Reviewed date:11/14/2024 10:10:57 AM Interpretation:Negative Performing Lab: Notes/Report: URINE CULTURE No growth Lab specime ns received at a [facility].?See result details for the performing location information. ANTIBODY SCREEN Reviewed date:11/12/2024 09:46:43 AM Interpretation:Negative Performing Lab: Notes/Report: ANTIBODY SCREEN Negative Lab speci mens received at a [facility].?See result details for the performing location information. HEPATITIS C ANTIBODY Reviewed date:11/12/2024 09:46:34 AM Interpretation:Negative Performing Lab: Notes/Report: HEPATITIS C ANTIBODY Non-Reactive Non-Reacti La b specimens received at a [facility].?See result details for the performing location information. HIV-1/O/2 ANTIGEN/ANTIBODY, 4TH GENERATION Reviewed date:11/12/2024 09:46:26 AM Interpretation:Negative Performing Lab: Notes/Report: The HIV antibody/antigen combo assay is a qualitative assay for HIV that includes the p24 antigen as well as antibodies to HIV types 1 and 2. This test is intended to be used as a screening assay in the diagnosis of HIV infection in patients over the age of 2. HIV DUO Non-Reactive Non-Reacti Lab specimen s received at a [facility].?See result details for the performing location information. HEMOGLOBIN A1C Reviewed date:11/12/2024 09:46:18 AM Interpretation:4.7 normal Performing Lab: Notes/Report: Hemoglobin A1C Ranges: Increased Risk for Diabetes 5.7% to 6.4% Diabetes >= 6.5% Diabetic Goal < 7.0% HEMOGLOBIN A1C 4.70 4.80-5.60 % L Lab speci mens received at a [facility].?See result details for the performing location information. ABO/RH Reviewed date:11/12/2024 09:46:47 AM Interpretation:A+ Performing Lab: Notes/Report: ABO TYPE A RH TYPE Positive Lab specimens received at a [facility].?See result details for the performing location information. HEPATITIS B SURFACE ANTIGEN Reviewed date:11/12/2024 09:46:22 AM Interpretation:Negative Performing Lab: Notes/Report: HEPATITIS B SURFACE ANTIGEN Non-Reactive Non-Reacti Lab specimens received at a [facility].?See result details for the performing location information. RUBELLA ANTIBODY, IGG Reviewed date:11/14/2024 10:10:53 AM Interpretation:Immune Performing Lab: Notes/Report: Performed at: [address] [place] [address] [id number] Backend Developer: Kimo Zimmer PhD, Phone: [phone] RUBELLA ANTIBODIES, IGG (REF) 5.19 Immune >0. index Non-immune <0.90 Equivocal 0.90 - 0.99 Immune >0.99 Lab specimens received at a [facility].?See result details for the performing location information. TREPONEMA PALLIDUM (SYPHILIS ) SCREENING CASCADE Reviewed date:11/12/2024 09:46:30 AM Interpretation:Negative Performing Lab: Notes/Report: Reactive results will reflex RPR testing. TREPONEMAL AB TOTAL Non-Reactive Non-Reacti Lab specimens received at a [facility].?See result details for the performing location information. CHLAMYDIA TRACHOMATIS, NEISS ERIA GONORRHOEAE, PCR Reviewed date:11/12/2024 09:46:10 AM Interpretation:Negative Performing Lab: Notes/Report: CHLAMYDIA BY PCR Not Detected Not Detect GC BY PCR Not Detected Not Detect Lab specimen s received at a [facility].?See result details for the performing location information. FENTANYL, URINE Reviewed date:11/12/2024 09:46:52 AM Interpretation:Negative Performing Lab: Notes/Report: Negative Threshold: Fentanyl 5 ng/mL The normal value for the drug tested is negative. This report includes final unconfirmed screening results to be used for medical treatment purposes only. Unconfirmed results must not be used for non-medical purposes such as employment or legal testing. Clinical consideration should be applied to any drug of abuse test, particularly when unconfirmed results are used. ? ? ? FENTANYL URINE Negative Negative Lab specim ens received at a [facility].?See result details for the performing location information. Non Invasive Testin g Reviewed date:11/17/2024 01:01:57 PM Interpretation:low risk male Performing Lab: Notes/Report: low risk male CBC (NO DIFF) Reviewed date:02/02/2025 02:43:21 PM Interpretation:Normal Performing Lab: Notes/Report: WBC, CORRECTED 6.55 3.40-10.80 10*3/mm3 ERYTHROCYTES IN BLOOD BY AUTOMATED COUNT 3.85 3.77-5.28 10*6/mm3 HEMOGLOBIN (G/DL) IN BLOOD 11.7 12.0-15.9 g/dL L HEMATOCRIT (%) BY AUTOMATED COUNT 35.0 34.0-46.6 % RBC MCV (FL) BY AUTOMATED COUNT 90.9 79.0-97.0 fL RBC MCH (PG) BY AUTOMATED COUNT 30.4 26.6-33.0 pg RBC MCHC (G/DL) BY AUTOMATED COUNT 33.4 31.5-35.7 g/dL RBC RDW (%) BY AUTOMATED COUNT 11.7 12.3-15.4 % L RDW-SD 38.8 37.0-54.0 fl MEAN PLATELET VOLUME (FL) BY AUTOMATED COUNT 10.1 6.0-12.0 fL PLATELETS BY AUTOMATED COUNT 232 140-450 10*3/mm3 Lab specimens received at a [facility].?See result details for the performing location information. *US OB Complete Transabdomin al/Vaginal Reviewed date:11/12/2024 09:45:15 AM Interpretation: Performing Lab: Notes/Report: [facility] Transabdominal Obstetric Study Report Name: GIRMA QUIROGA Accession/Encounter No:[id number] : 1995 Age: 28 Gender: F Race: White Study Date: Nov 11, 2024 Study Time: 01:22 PM Reading Group: Zoey Hilario MD Referring Group: Zoey Hilario MD Ordering Phys: Zoey Hilario MD Performing User: Iesha Rainey RDMS Equipment: Affiniti 30 Study Quality: Good Indications: NOB A transabdominal OB ultrasound was performed. General Information Trimester: 1st trimester Gestations: 1 : Intrauterine Gestational Age (Best) Best: 12w 4d Determined by: LMP MONISHA: 2025-05-22 Gestational Age (LMP) LMP: 12w 4d First Day of LMP: 2024-08-15 MONISHA: 2025-05-22 Gestational Age (Current US) Current US: 11w 6d Current US MONISHA by: BETHANY MONISHA: 2025-05-27 General Evaluation cardiac activity: Present Biometry (Fetus A) HR: 169 bpm [place]-rump length:51.7 mm 11w 6d 5% Conclusions: Mcclure IUP noted with cardiac activity. Size is consistent with LMP dating. Uterus, ovaries and bilateral adnexa appear normal. Approved By: Zoey Hilario MD Approved at: November 11, 2024 04:13 PM EDT Electronically Signed on Studycast GIRMA QUIROGA 2024-11-11 Page 1 of 1 Imaging Center - , [facility] TREPONEMA PALLIDUM (SYPHILIS ) SCREENING CASCADE Reviewed date:02/02/2025 04:10:14 PM Interpretation:Negative Performing Lab: Notes/Report: Reactive results will reflex RPR testing. TREPONEMAL AB TOTAL Non-Reactive Non-Reacti Lab specimens received at a [facility].?See result details for the performing location information. GLUCOSE, POST 50 GM GLUCOLA Reviewed date:02/04/2025 11:32:01 AM Interpretation:133 passed Performing Lab: Notes/Report: GESTATIONAL GCT 133 65-139 mg/dL Lab spe cimens received at a [facility].?See result details for the performing location information. Reason For Referral No Information Medications Medication SIG (Take, Route, Fr equency, [...] Info Options Details Miscellaneous: Domestic violence: No Section Notes: Age you started smokin Amount of Use: 6-10/day Do you now or have you ever smoked or used tobacco products?: Yes Former Smoker - Age you stopped: 23 Have you ever used any recreational drugs?: No Have you had a drink containing alcohol in the last year?: Yes How often did you have a drink containing alcohol in the last year?: Less than monthly Type of Product: Cigarettes Age you started smokin Amount of Use: 6-10/day Do you now or have you ever smoked or used tobacco products?: Yes Former Smoker - Age you stopped: 23 Have you ever used any recreational drugs?: No Have you had a drink containing alcohol in the last year?: Yes How often did you have a drink containing alcohol in the last year?: Less than monthly Type of Product: Cigarettes Age you started smokin Amount of Use: 6-10/day Do you now or have you ever smoked or used tobacco products?: Yes Former Smoker - Age you stopped: 23 Have you ever used any recreational drugs?: No Have you had a drink containing alcohol in the last year?: Yes How often did you have a drink containing alcohol in the last year?: Less than monthly Type of Product: Cigarettes Age you started smokin Amount of Use: 6-10/day Do you now or have you ever smoked or used tobacco products?: Yes Former Smoker - Age you stopped: 23 Have you ever used any recreational drugs?: No Have you had a drink containing alcohol in the last year?: Yes How often did you have a drink containing alcohol in the last year?: Less than monthly Type of Product: Cigarettes Age you started smokin Amount of Use: 6-10/day Do you now or have you ever smoked or used tobacco products?: Yes Former Smoker - Age you stopped: 23 Have you ever used any recreational drugs?: No Have you had a drink containing alcohol in the last year?: Yes How often did you have a drink containing alcohol in the last year?: Less than monthly Type of Product: Cigarettes Age you started smokin Amount of Use: 6-10/day Do you now or have you ever smoked or used tobacco products?: Yes Former Smoker - Age you stopped: 23 Have you ever used any recreational drugs?: No Have you had a drink containing alcohol in the last year?: Yes How often did you have a drink containing alcohol in the last year?: Less than monthly Type of Product: Cigarettes Age you started smokin Amount of Use: 6-10/day Do you now or have you ever smoked or used tobacco products?: Yes Former Smoker - Age you stopped: 23 Have you ever used any recreational drugs?: No Have you had a drink containing alcohol in the last year?: Yes How often did you have a drink containing alcohol in the last year?: Less than monthly Type of Product: Cigarettes Age you started smokin Amount of Use: 6-10/day Do you now or have you ever smoked or used tobacco products?: Yes Former Smoker - Age you stopped: 23 Have you ever used any recreational drugs?: No Have you had a drink containing alcohol in the last year?: Yes How often did you have a drink containing alcohol in the last year?: Less than monthly Type of Product: Cigarettes Problems Problem Type SNOMED Code ICD Code Onset Dates Problem Status W/U Status Risk Notes Problem History of bariatric surgery (571839982) History of bariatric surgery (Z98.84) Active confirmed Problem History of section (027690653) History of delivery, currently (O34.219) Active confirmed Problem Supervision of high risk (704882007) Supervision of other high risk pregnancies, second trimester (O09.892) Active confirmed Problem History of section (495373067) Previous section (Z98.891) Active confirmed Problem Supervision of high risk (620087472) Supervision of other high risk pregnancies, third trimester (O09.893) Active confirmed Vital Signs Height 64 in 09/29/2024 Weight 181.0 lbs 03/02/2025 BMI 31.069 kg/m2 03/02/2025 Encounters Encounter Location Date Provider Diagnosis [facility] [address] [facility] [address] [place] [address] 10/31/2024 Zoey Hilario [facility] [address] [facility] [address] [place] [address] 02/09/2025 Mary Michael [facility] [address] [facility] [address] [place] [address] 11/11/2024 Zoey Hilario Encounter for supervision of other normal in first trimester Z34.81 ; 12 weeks gestation of Z3A.12 ; History of bariatric surgery Z98.84 and History of delivery, currently O34.219 [facility] [address] [facility] [address] [place] [address] 04/01/2024 Zoey Hilario Routine follow-up Z39.2 and Encounter for screening for maternal depression Z13.32 [facility] [address] [facility] [address] [place] [address] 12/09/2024 Zoey Hilario Supervision of other high risk pregnancies, second trimester O09.892 ; 16 weeks gestation of Z3A.16 and History of delivery, currently O34.219 [facility] [address] [place] [address] 01/06/2025 Zoey Hilario History of delivery, currently O34.219 ; Supervision of other high risk pregnancies, second trimester O09.892 ; History of bariatric surgery Z98.84 and 20 weeks gestation of Z3A.20 [facility] [address] [facility] [address] [place] [address] 02/02/2025 Zoey Rodriguezsusu History of bariatric surgery Z98.84 ; Supervision of other high risk pregnancies, second trimester O09.892 ; History of delivery, currently O34.219 ; 24 weeks gestation of Z3A.24 and Previous section Z98.891 [facility] [address] [facility] [address] [place] [address] 03/02/2025 Zoey Rodriguezsusu History of bariatric surgery Z98.84 ; Supervision of other high risk pregnancies, third trimester O09.893 ; History of delivery, currently O34.219 ; Previous section Z98.891 and 28 weeks gestation of [facility]3A.28 [facility] [facility] [address] [place] [address] 09/29/2024 Zoey Michaelsusu Missed menses N92.6 and Early stage of Z34.90 [facility] [address] [facility] [address] [place] [address] 01/06/2025 Zoey Hilario Supervision of other high risk pregnancies, second trimester O09.892 [facility] [address] [facility] [address] [place] [address] 11/11/2024 Zoey Hliario Missed menses N92.6 and Early stage of Z34.90 Assessments Encounter Date Diagnosis (ICD Code) Assessment Notes Treatment Notes Treatment Clinical Notes Section Notes 09/29/2024 Missed menses (ICD-10 - N92.6) Early noted today. no complaints. feels well. taking PNV. RTC 6 wk for NOB 12/09/2024 Supervision of other high risk pregnancies, second trimester (ICD-10 - O09.892) 01/06/2025 Supervision of other high risk pregnancies, second trimester (ICD-10 - O09.892) 11/11/2024 Encounter for supervision of other normal in first trimester (ICD-10 - Z34.81) 11/11/2024 12 weeks gestation of (ICD-10 - Z3A.12) 12/09/2024 16 weeks gestation of (ICD-10 - Z3A.16) 01/06/2025 Supervision of other high risk pregnancies, second trimester (ICD-10 - O09.892) 01/06/2025 History of delivery, currently (ICD-10 - O34.219) 02/02/2025 History of bariatric surgery (ICD-10 - Z98.84) 02/02/2025 Supervision of other high risk pregnancies, second trimester (ICD-10 - O09.892) 03/02/2025 History of bariatric surgery (ICD-10 - Z98.84) 11/11/2024 Missed menses (ICD-10 - N92.6) 09/29/2024 Early stage of (ICD-10 - Z34.90) Early noted today. no complaints. feels well. taking PNV. RTC 6 wk for NOB 04/01/2024 Routine follow-up (ICD-10 - Z39.2) 03/02/2025 Supervision of other high risk pregnancies, third trimester (ICD-10 - O09.893) 02/02/2025 History of delivery, currently (ICD-10 - O34.219) 03/02/2025 History of delivery, currently (ICD-10 - O34.219) 04/01/2024 Encounter for screening for maternal depression (ICD-10 - Z13.32) 11/11/2024 History of bariatric surgery (ICD-10 - Z98.84) 11/11/2024 Early stage of (ICD-10 - Z34.90) 01/06/2025 History of bariatric surgery (ICD-10 - Z98.84) 12/09/2024 History of delivery, currently (ICD-10 - O34.219) 01/06/2025 20 weeks gestation of (ICD-10 - Z3A.20) 11/11/2024 History of delivery, currently (ICD-10 - O34.219) 02/02/2025 24 weeks gestation of (ICD-10 - Z3A.24) 03/02/2025 Previous section (ICD-10 - Z98.891) 03/02/2025 28 weeks gestation of (ICD-10 - Z3A.28) 02/02/2025 Previous section (ICD-10 - Z98.891) Plan Of Treatment Next Appt Details Provider Name:Zoey Hilario, 03/17/2025 10:30:00 AM, [address], [place], [address], Provider Name:Zoey Hilario, 03/31/2025 10:30:00 AM, [address], [address], [place], [address], Provider Name:Zoey Hilario, 04/14/2025 10:30:00 AM, [address], [address], [place], [address], Provider Name:Zoey Hilario, 04/28/2025 10:30:00 AM, [address], [address], [place], [address], Provider Name:Zoey Hilario, 05/05/2025 10:45:00 AM, [address], [address], [place], [address], Provider Name:Zoey Hilario, 05/12/2025 10:45:00 AM, [address], [address], [place], [address], Provider Name:Mary Michael, 05/18/2025 12:00:00 PM, [address], [facility] [address], [place], [address], Provider Name:Zoey Hilario, 06/01/2025 11:15:00 AM, [address], [place], [address], Provider Name:Zoey Hilario, 07/01/2025 11:30:00 AM, [address], [facility] [address], [place], [address], Insurance Providers Payer Name Payer Address Payer Phone Subscriber Number Group Number Insured Name Patient Relationship to Insured Coverage Start Date [facility]age End Date [facility] [address] [place] [phone] [id number] Girma Quiroga Self - patient is the insured Medical (General) History Medical History History ICD Code hypertension Surgical History Surgery Date(Month/Year) tonsillectomy 2019 Bariatric Surgery 10/23/22 Hospitalization History Reason Date(Month/Year) Bariatric Surgery 11/09
--- OUTSIDE RECORDS SUMMARY | 2025-03-09 10:05 | XMS_ITS | Clinical Summary ---
Author Organization [facility] Address [address] [place] [address] Care Team Providers Care Illuminator Name Role Phone Dania Caballero APRN Primary Care Provider + [phone] Allergies Active Allergy Reactions Criticality Noted Date Comments Amoxicillin Hives 02/18/2024 Clarithromycin Hives 02/18/2024 Cefaclor Hives 02/18/2024 Sulfa Antibiotics Hives 02/18/2024 Azithromycin Hives 02/18/2024 Medications Vit-Fe Fumarate-FA ( 27-1) 27-1 MG tablet tablet Take by mouth Daily. Active Multiple Vitamins-Minera ls (b oglrtsh-O-E-zin c) tablet Take 1 tablet by mouth Daily. Active docusate sodium 100 MG capsule Take 1 capsule by mouth 2 (Two) Times a Day As Needed for Constipation . 60 capsule 02/20/2024 10:09 AM EDT 02/20/2024 Active ibuprofen (ADVIL,MOTRIN) 600 MG tablet Take 1 tablet by mouth Every 6 (Six) Hours. 60 tablet 02/20/2024 10:09 AM EDT 02/20/2024 Active Active Problems Problem Noted Date Diagnosed Date Previous section 02/19/2024 Failed medical induction of labor 02/19/2024 IUGR (intrauterine growth re striction) affecting care of mother 02/18/2024 Comments Yes Encounters Date Type Department Care Team Description 02/02/2025 11:35 AM EDT Lab [facility] [address] [place] [address] History of maternal syphilis, currently , second trimester 02/02/2025 Travel from Last 3 Months Family History Medical History Relation Name Comments Hypertension Father Hypertension Mother Relation Name Status Comments Father Mother Social History Tobacco Use Types Packs/Day Years Used Date Smoking Tobacco: Never Passive Smoke Exposure: Never Smokeless Tobacco: Never Tobacco Cessation:Counseling Given: No Alcohol Use Standard Drinks/Week Comments Never 0 (1 standard drink = 0.6 oz pur e alcohol) [facility] Utilities Answer Date Recorded In the past 12 months has th e dot[employer], gas, oil, or water [employer] threatened to shut off services in your [...] and heating? Not hard at all 02/18/2024 [facility] [place] of Occupat ional Health - Occupational Stress [...] things needed for daily living? No 02/18/2024 [place] Depression Scale Answer Date Recorded Retired [place] Depression Score 0 02/19/2024 Retired EPD Scale: [...] none 02/18/2024 Family and Community Support Answer Aidna e Recorded If for any reason you [...] GED or equivalent No 02/18/2024 Preferred Language Citizen Of [place] 02/18/2024 PHQ-2 Answer Date Recorded Retired PHQ-9: Brief Depression Severity Measure Score 0 02/18/2024 Comments Yes Sex and Gender Information Value Date Recorded Sex Assigned at Not on file Legal Sex Female 3:19 PM EST Gender Identity Not on file Sexual Orientation Not on file Last Filed Vital Signs Vital Sign Reading Time Taken Comments Blood Pressure 127/78 02/20/2024 7:00 AM EDT Pulse 62 02/20/2024 7:00 AM EDT Temperature 36.4 C (97.6 F) 02/20/2024 7:00 AM EDT Respiratory Rate 18 02/20/2024 7:00 AM EDT Oxygen Saturation 97% 02/19/2024 1:08 AM EDT Inhaled Oxygen Concentration - - Weight 83.9 kg (185 lb) 02/18/2024 5:32 AM EDT Height 165.1 cm (5' 5 ) 02/18/2024 4:10 AM EDT Body Mass Index 30.79 02/18/2024 4:10 AM EDT Plan of Treatment Upcoming Encounters Date Type Department Care Team (Late st Contact Info) Description 05/15/2025 3:30 PM EDT Pre-Admission Testing [facility] [address] [place] [address] 05/18/2025 12:00 PM EDT Hospital Encounter [facility] [address] [place] [address] Mary Michael MD [address] [facility] [address] [place], [place] [id number] 05/18/2025 12:00 PM EDT - 05/18/2025 1:00 PM EDT Surgery [facility] [address] [place] [address] Mary Michael MD [address] [facility] [address] [place] [id number] SECTION REPEAT Scheduled Procedures Name Priority Associated Diagnoses Date/Ti me SECTION REPEAT 04/21 12:00 PM EDT Health Maintenance Due Date Last Done Comments Annual Gynecologic Pelvic and Breast Exam 1994 Pneumococcal Vaccine 0-49 (1 of 2 - PCV) 2013 TDAP/TD VACCINES (1 - Tdap) 2013 ANNUAL PHYSICAL 02/15/2024 COVID-19 Vaccine (1 - season) 2024 INFLUENZA VACCINE 05/20/2025 RSV Vaccine - Adults (1 - 1- dose 75+ series) 2069 HEPATITIS C SCREENING Completed 11/11/2024, 024 Medical Devices Implanted Type Area Line Cook Device Identifier Shelf Expiration Date Model / Serial / Lot Seal Hemo Surg Chris/Ah Abs/Pwdr 3gm - [id number] Implanted:Qty : 1 on 02/18/2024 by Zoey Hilario MD at [facility] Implant N/A: Uterus [employer] [id number] / / [id number] Procedures Procedure Name Priority Date/Time Associated Diagnosis Comments POCT POST GLUCOSE TOLERANCE Routine 02/02/2025 11:58 AM EDT History of maternal syphilis, currently , second trimester TREPONEMA PALLIDUM AB W/REFLEX RPR Routine 02/02/2025 11:58 AM EDT History of maternal syphilis, currently , second trimester CBC (NO DIFF) Routine 02/02/2025 11:58 AM EDT History of maternal syphilis, currently , second trimester GLUCOSE, POST 50 GM GLUCOLA Routine 02/02/2025 11:58 AM EDT History of maternal syphilis, currently , second trimester HEPATITIS C ANTIBODY Routine 11/11/2024 2:49 PM EDT care, subsequent , first trimester 12 weeks gestation of from Last 3 Months or Most Recently Relevant to Health Maintenance Results * Treponema pallidum AB w/Reflex RPR (02/02/2025 11:58 AM EDT) Treponemal AB Total Non-Reacti ve Non-React makenna 02/02/2025 2:52 PM EDT [facility] Blood Venipuncture / Unknown 02/02/2025 11:58 AM EDT 02/02/2025 12:15 PM EDT Narrative [facility] - 02/02/2025 2:52 PM EDT Reactive results will reflex RPR testing. us Zoey Hilario MD LAB BLOOD ORDERABLES Final Re sult [facility]
[address] [place] [address], * POCT Post Glucose Tolerance (02/02/2025 11:58 AM EDT) Blood Venipuncture / Unknown 02/02/2025 11:58 AM EDT 02/02/2025 12:05 PM EDT us Zoey Hilario MD POINT OF CARE TEST ORDERABLES Final Result [facility]
[address] [place] [address], * Glucose, Post 50 Gm Glucola (02/02/2025 11:58 AM EDT) [facility] Gestational GCT 133 65 - 139 mg/dL 02/02/2025 4:15 PM EDT [facility] Blood Venipuncture / Unknown 02/02/2025 11:58 AM EDT 02/02/2025 1:12 PM EDT us Zoey Hilario MD LAB BLOOD ORDERABLES Final Re sult Performing Organization Address City/[facility]/ZIP Co de Phone Number [facility]
[address] [place] [address], * (ABNORMAL) CBC (No Diff) (02/02/2025 11:58 AM EDT) [facility] WBC 6.55 3.40 - 10.80 10*3/mm3 02/02/2025 2:33 PM EDT [facility] RBC 3.85 3.77 - 5.28 10*6/mm3 02/02/2025 2:33 PM EDT [facility] Hemoglobin 11.7(L) 12.0 - 15.9 g/dL 02/02/2025 2:33 PM EDT [facility] Hematocrit 35.0 34.0 - 46.6 % 02/02/2025 2:33 PM EDT [facility] MCV 90.9 79.0 - 97.0 fL 02/02/2025 2:33 PM EDT [facility] MCH 30.4 26.6 - 33.0 pg 02/02/2025 2:33 PM EDT [facility] MCHC 33.4 31.5 - 35.7 g/dL 02/02/2025 2:33 PM EDT [facility] RDW 11.7(L) 12.3 - 15.4 % 02/02/2025 2:33 PM EDT [facility] RDW-SD 38.8 37.0 - 54.0 fl 02/02/2025 2:33 PM EDT [facility] MPV 10.1 6.0 - 12.0 fL 02/02/2025 2:33 PM EDT [facility] Platelets 232 140 - 450 10*3/mm3 02/02/2025 2:33 PM EDT [facility] Blood Venipuncture / Unknown 02/02/2025 11:58 AM EDT 02/02/2025 12:06 PM EDT us Zoey Hilario MD LAB BLOOD ORDERABLES Final Re sult [facility]
[address] [place] [address], * Hepatitis C Antibody (11/11/2024 2:49 PM EDT) Hepatitis C Ab Non-Reacti ve Non-Reacti ve 11/12/2024 12:08 AM EDT [facility] Blood Venipuncture / Unknown 11/11/2024 2:49 PM EDT 11/11/2024 2:49 PM EDT us Zoey Hilario MD LAB BLOOD ORDERABLES Final Re sult [facility]
[address] [place] [address], [place] [phone] from Last 3 Months or Most Recently Relevant to Health Maintenance Insurance [employer] [facility] Advance Directives * CPR (Attempt to Resuscitate) (Latest Code Status on File) Date Activated Date Inactivated Comments 02/19/2024 1:56 AM 02/20/2024 2:39 PM Question Answer Comments Code Status (Patient has no pulse and is not breathing): CPR (Attempt to Resuscitate) Medical Interventions (Patie nt has pulse or is breathing): Full * CPR (Attempt to Resuscitate) Date Activated Date Inactivated Comments 02/18/2024 1:07 AM 02/19/2024 1:56 AM Question Answer Comments Code Status (Patient has no pulse and is not breathing): CPR (Attempt to Resuscitate) Medical Interventions (Patie nt has pulse or is breathing): Full Support Level Of Support Discussed With: Patient Care Teams Illuminator Relationship Specialty Start Date End Date Dania Caballero APRN [facility] [address] [facility] [address] [place] [address] PCP - General Internal Medicine 08/28/23
== END 2025-03-06 23:59 | disposition home or self-care (01) ==
LOC: LAB.DROPOF 03-09 09:59
PROVIDERS: PCP Nurse Practitioner; Visit Provider Nurse Practitioner
DX: R30.0 Dysuria (principal)
CPT/HCPCS: 87086; 87088; 87186